=== PATIENT | male | born 1970 | race Caucasian/White ===

== ENCOUNTER 2020-04-19 09:39 | Emergency (ER) | payer MEDICAID ==
[~2020-04-19] VITALS: Ht 185.4 cm; Wt 102.0 kg
[2020-04-19] MEDS ORDERED: ondansetron 4mg rapidly disintigrating tab PO ONE (10:40)
[2020-04-19] MEDS ORDERED: HYDROcodone/acetaminophen 10/325mg tab PO ONE (10:40)
[2020-04-19] MEDS ORDERED: ONDA4TAB6 PO (11:40)
[2020-04-19] MEDS ORDERED: HYDR-4383 PO (11:40)
--- NOTE | 2020-04-19 12:14 | NUR ---
Pt is awaiting Track Walker to apply the back brace and the arm splint prior to discharge.
[2020-04-19 12:41] VITALS: BP 154/104
== END 2020-04-19 12:40 | disposition home or self-care (01) ==
LOC: ER 09:40
DX: S52.042A Displaced fracture of coronoid process of left ulna, initial encounter for closed fracture (principal); S52.612A Displaced fracture of left ulna styloid process, initial encounter for closed fracture; S52.692A Other fracture of lower end of left ulna, initial encounter for closed fracture; S22.088A Other fracture of T11-T12 vertebra, initial encounter for closed fracture; Z79.899 Other long term (current) drug therapy; W11.XXXA Fall on and from ladder, initial encounter; Y93.89 Activity, other specified; Y92.89 Other specified places as the place of occurrence of the external cause; Y99.8 Other external cause status
CPT/HCPCS: 29105; 72125; 72128; 73080; 73110; 73140; 99285

== ENCOUNTER 2021-10-17 18:05 | Emergency (ER) | payer MEDICAID ==
[~2021-10-17] VITALS: Ht 185.4 cm; Wt 104.5 kg
[~2021-10-17 18:05] MED LIST: HYDR-4383 PO; ONDA4TAB6 PO
[2021-10-17 20:27] LABS: CLARITY,URINE CLEAR (Clear); COLOR,URINE YELLOW (Yellow); GLUCOSE, URINE NEGATIVE (Neg); KETONES,URINE NEGATIVE (Neg); LEUKOCYTE ESTERASE ,URINE NEGATIVE (Neg); NITRITES, URINE NEGATIVE (Neg); OCCULT BLOOD,URINE NEGATIVE (Neg); PH,URINE 5.5 (4.8-8.0); PROTEIN,URINE NEGATIVE (Neg); UROBILINOGEN,URINE 0.2 E.U/dL (0.2-1.0)
[2021-10-17 20:33] LABS: UA COLLECTION TYPE CLN CATCH MIDSTREAM
[2021-10-17 20:34] LABS: BASOPHILS # (AUTO) 0.1 X10'3 (0-0.2); BASOPHILS % (AUTO) 0.4 % (0-1); EOSINOPHILS # (AUTO) 0.2 X10'3 (0-0.9); EOSINOPHILS % (AUTO) 1.4 % (0-6); HEMATOCRIT 48.6 % (42.0-52.0); HEMOGLOBIN 16.9 g/dl (14.0-17.9); LYMPHOCYTES # (AUTO) 2.5 X10'3 (1.1-4.8); LYMPHOCYTES % (AUTO) 18.8 % (21-51); MEAN CORPUSCULAR HEMOGLOBIN 32.7 PG (27.0-31.0); MEAN CORPUSCULAR HGB CONC 34.8 g/dL (33.0-36.5); MEAN CORPUSCULAR VOLUME 93.9 FL (78-98); MEAN PLATELET VOLUME 8.5 FL (7.4-10.4); MONOCYTES # (AUTO) 0.9 X10'3 (0-0.9); MONOCYTES % (AUTO) 6.5 % (2-12); NEUTROPHILS # (AUTO) 9.7 X10'3 (1.8-7.7); NEUTROPHILS % (AUTO) 72.9 % (42-75); PLATELET COUNT 220 X10'3 (140-440); RED BLOOD COUNT 5.18 X10'6 (4.70-6.10); RED CELL DISTRIBUTION WIDTH 14.2 % (11.5-14.5); WHITE BLOOD COUNT 13.3 X10'3 (4.5-11.0)
[2021-10-17 20:37] LABS: ALANINE AMINOTRANSFERASE 32 U/L (12-78); ALBUMIN 3.9 G/DL (3.4-5.0); ALBUMIN/GLOBULIN RATIO 1.3 (1.1-1.5); ALKALINE PHOSPHATASE 95 IU/L (46-116); ANION GAP 9 (8-16); ASPARTATE AMINO TRANSFERASE 24 U/L (10-37); BILIRUBIN,TOTAL 0.3 MG/DL (0.1-1.0); BLOOD UREA NITROGEN 18 MG/DL (7-18); BUN/CREATININE RATIO 16.8 (5.4-32.0); CHLORIDE 105 MMOL/L (99-107); CREATININE 1.07 MG/DL (0.60-1.10); GLUCOSE 114 MG/DL (70-104); LIPASE 115 U/L (73-393); SODIUM 140 MMOL/L (135-145); TOTAL CARBON DIOXIDE 26.3 MMOL/L (24-32); eGFR 73 ML/MIN
[2021-10-18] MEDS ORDERED: HYDR-3965 PO (02:44)
[2021-10-18 02:52] VITALS: BP 135/78
== END 2021-10-18 02:53 | disposition home or self-care (01) ==
LOC: ER 18:07
DX: S49.191A Other physeal fracture of lower end of humerus, right arm, initial encounter for closed fracture (principal); F41.0 Panic disorder [episodic paroxysmal anxiety]; Z79.899 Other long term (current) drug therapy; Z60.2 Problems related to living alone; X58.XXXA Exposure to other specified factors, initial encounter; Y93.89 Activity, other specified; Y92.89 Other specified places as the place of occurrence of the external cause; Y99.8 Other external cause status
CPT/HCPCS: 36415; 70450; 72125; 73030; 73080; 80053; 81003; 83690; 85025; 93005; 99285

== ENCOUNTER 2024-01-02 07:33 | Emergency (ER) | payer MEDICAID ==
[~2024-01-02] VITALS: Ht 185.4 cm; Wt 83.0 kg
[2024-01-02 07:44] VITALS: TEMP 98.6
[2024-01-02] MEDS ORDERED: ketorolac trometh inj. 60 MG/2 ML VIAL IM ONE (09:55)
[2024-01-02] MEDS ORDERED: HYDR-3973 PO (09:57)
[2024-01-02] MEDS: ketorolac tromethamine 15mg/ml inj. IM ONE (10:10)
[2024-01-02 10:18] VITALS: BP 125/72; PULSE 63; RESP 20; O2SAT 98
== END 2024-01-02 10:19 | disposition home or self-care (01) ==
LOC: ER 07:33
DX: S20.212A Contusion of left front wall of thorax, initial encounter (principal); Z79.899 Other long term (current) drug therapy; W01.0XXA Fall on same level from slipping, tripping and stumbling without subsequent striking against object, initial encounter; Y93.89 Activity, other specified; Y92.89 Other specified places as the place of occurrence of the external cause; Y99.8 Other external cause status
CPT/HCPCS: 71045; 96372; 99283; J1885

== ENCOUNTER 2024-01-05 05:56 | Emergency (ER) | payer MEDICAID ==
[~2024-01-05] VITALS: Ht 185.4 cm; Wt 104.5 kg
[~2024-01-05 05:56] MED LIST changes: +HYDR-3973 PO
[2024-01-05] MEDS: oxyCODONE IR 5mg (immed. release) tablet PO ONE (09:01)
[2024-01-05] MEDS: ketorolac trometh. 30mg/ml inj. IM ONE (09:06)
[2024-01-05] MEDS: BUPIVAcaine/PF 7.5 mg/ml (0.75%) 30ml vial IJ ONE (10:40)
[2024-01-05] MEDS: dexamethasone sod phosphate 10mg/ml inj IV ONE (10:40)
[2024-01-05] MEDS ORDERED: IBUP-1984 PO (11:03)
[2024-01-05] MEDS ORDERED: HYDR-3964 PO (11:03)
[2024-01-05] MEDS ORDERED: LIDO700A47 TOP (11:03)
[2024-01-05] MEDS ORDERED: POLY119P2 PO (11:05)
[2024-01-05] MEDS ORDERED: AMOX-117 PO (11:05)
[2024-01-05] MEDS ORDERED: DOCU-148 PO (11:05)
[2024-01-05] MEDS ORDERED: HYDR-3972 PO (11:05)
[2024-01-05] MEDS: LIDOcaine 5% patch TP ONE (12:07)
[2024-01-05 12:23] VITALS: BP 142/89; PULSE 61; RESP 18; O2SAT 97
[2024-01-06] MEDS ORDERED: HYDR-3965 PO (09:37)
== END 2024-01-05 12:15 | disposition home or self-care (01) ==
LOC: ER 05:57
DX: S22.42XA Multiple fractures of ribs, left side, initial encounter for closed fracture (principal); J98.11 Atelectasis; Z79.2 Long term (current) use of antibiotics; Z79.899 Other long term (current) drug therapy; W19.XXXA Unspecified fall, initial encounter; Y93.89 Activity, other specified; Y92.89 Other specified places as the place of occurrence of the external cause; Y99.8 Other external cause status
CPT/HCPCS: 64420; 71045; 71250; 96372; 99285; J1885

== ENCOUNTER 2024-01-14 08:10 | Emergency (ER) | payer MEDICAID ==
[~2024-01-14] VITALS: Ht 185.4 cm; Wt 104.5 kg
[~2024-01-14 08:10] MED LIST changes: +DOCU-148 PO; +HYDR-3965 PO; +IBUP-1984 PO; +LIDO700A47 TOP; +POLY119P2 PO
[2024-01-14 08:25] VITALS: BP 147/95; PULSE 91; O2SAT 98
[2024-01-14] MEDS ORDERED: HYDR-3965 PO (09:16)
[2024-01-14 09:39] VITALS: RESP 16
[2024-01-14] MEDS: ketorolac trometh. 30mg/ml inj. IM ONE (09:39)
[2024-01-14 10:01] VITALS: TEMP 97.4
== END 2024-01-14 10:02 | disposition home or self-care (01) ==
LOC: ER 08:11
DX: S22.32XA Fracture of one rib, left side, initial encounter for closed fracture (principal); R07.81 Pleurodynia; Z79.899 Other long term (current) drug therapy; W14.XXXA Fall from tree, initial encounter; Z91.81 History of falling; Y93.89 Activity, other specified; Y92.89 Other specified places as the place of occurrence of the external cause; Y99.8 Other external cause status
CPT/HCPCS: 71046; 96372; 99284; J1885

== ENCOUNTER → 2024-03-15 | Outpatient (CLI) | payer MEDICAID ==
[~2024-03-15] MED LIST changes: -HYDR-3973 PO; -IBUP-1984 PO
== END | disposition home or self-care (01) ==
LOC: RAD 16:33
PROVIDERS: ATTEND Family Medicine
DX: S22.42XD Multiple fractures of ribs, left side, subsequent encounter for fracture with routine healing (principal); I25.10 Atherosclerotic heart disease of native coronary artery without angina pectoris; R91.8 Other nonspecific abnormal finding of lung field; I35.8 Other nonrheumatic aortic valve disorders; J43.2 Centrilobular emphysema; X58.XXXD Exposure to other specified factors, subsequent encounter
CPT/HCPCS: 71250

== ENCOUNTER → 2024-04-26 | Outpatient (CLI) | payer MEDICAID | END | disposition home or self-care (01) | LOC: RAD 07:25 | PROVIDERS: ATTEND Physician Assistant | DX: S22.42XD Multiple fractures of ribs, left side, subsequent encounter for fracture with routine healing (principal); X58.XXXD Exposure to other specified factors, subsequent encounter | CPT/HCPCS: 71110 ==

== ENCOUNTER 2025-06-17 13:36 | Emergency (ER) | payer MEDICAID ==
[~2025-06-17] VITALS: Ht 185.4 cm; Wt 104.5 kg
[2025-06-17 13:40] VITALS: BP 149/77; PULSE 78; TEMP 98.2; O2SAT 99
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
[2025-06-17] MEDS ORDERED: MELO-102 PO (14:57)
[2025-06-17] MEDS ORDERED: LIDO700A47 TOP (14:57)
[2025-06-17] MEDS ORDERED: CYCL-1 PO (14:57)
[2025-06-17 15:14] VITALS: RESP 20
[2025-06-17] MEDS: ketorolac trometh 30MG/ML vial 30 MG/ML VIAL IM ONE (15:14)
== END 2025-06-17 15:24 | disposition home or self-care (01) ==
LOC: ER 13:36
DX: G89.29 Other chronic pain (principal); M54.9 Dorsalgia, unspecified; Z79.899 Other long term (current) drug therapy; Z60.2 Problems related to living alone; W13.2XXA Fall from, out of or through roof, initial encounter; Y93.89 Activity, other specified; Y92.89 Other specified places as the place of occurrence of the external cause; Y99.8 Other external cause status
CPT/HCPCS: 96372; 99283; J1885

== ENCOUNTER 2025-06-22 13:50 | Emergency (ER) | payer MEDICAID ==
[~2025-06-22] VITALS: Ht 185.4 cm; Wt 105.3 kg
[~2025-06-22 13:50] MED LIST changes: +CYCL-1 PO; +MELO-102 PO
[2025-06-22 13:58] VITALS: TEMP 98.3
[2025-06-22 15:30] LABS: CREATININE 0.99 MG/DL (0.60-1.10); TOTAL CARBON DIOXIDE 26.9 MMOL/L (24-32); eCRCL 98 ML/MIN; eGFR 79 ML/MIN
[2025-06-22 15:45] LABS: MEAN PLATELET VOLUME 8.7 FL (7.4-10.4); RED CELL DISTRIBUTION WIDTH 14.1 % (11.5-14.5)
[2025-06-22 17:18] LABS: LEUKOCYTE ESTERASE ,URINE NEGATIVE (Neg); NITRITES, URINE NEGATIVE (Neg); OCCULT BLOOD,URINE NEGATIVE (Neg)
[2025-06-22 17:22] LABS: UA COLLECTION TYPE URINAL
[2025-06-22] MEDS ORDERED: HYDR-3972 PO (17:53)
--- NOTE | 2025-06-22 17:54 | Physician Documentation ---
History of Present Illness ~ Chief Complaint: Back Pain Stated Complaint: BACK PAIN Time Seen by MD: 16:24 OK to notify your PCP?: Yes Primary Medical Doctor: [facility] Source: patient Mode of Arrival: POV, Ambulatory Exam Limitations: no limitations HPI 54 year old male with a her back pain which he states he has a very long history of but recently his back pain is increased. Pain is localized to his thoracic to lumbar spine. No radicular symptoms. He does have an ablation scheduled with Dr. Padilla and in the meantime is hoping get some pain medication. He states his primary care provider will not prescribe any opioids as he goes to [facility] and it is against their policy. He did get an injection of Toradol that he states was 300 mg at [facility] two days ago which did not provide him with any relief. No urinary retention, bowel or bladder incontinence, abdominal pain, nausea, vomiting. Medication Reconciliation Allergies: Coded Allergies: No Known Allergies (Unverified , 06/17/25) Scheduled Cyclobenzaprine* (Cyclobenzaprine*), 1 TAB PO HS Docusate Sodium (Colace), 1 CAP PO Q12H Hydrocodone/Acetaminophen ([place] 5-325 Tablet), 1 TAB PO TID PRN Lidocaine (Lidocaine), 1 PATCH TOP DAILY Lidocaine (Lidocaine), 1 PATCH TOP DAILY Meloxicam (Meloxicam), 1 TAB PO DAILY Ondansetron Hcl (Zofran), 1 TAB PO Q6H Polyethylene Glycol 3350 (Miralax), 17 GM PO DAILY Scheduled PRN Hydrocodone Bit/Acetaminophen 5/325 MG ([place] 5/325 MG), 1-2 TAB PO Q4-6 hours PRN for pain Hydrocodone Bit/Acetaminophen (Hydrocodon-Acetaminophn 10-325 tablet), 1 TAB PO TID PRN PRN for pain Past Medical History Past Medical History: No Pertinent History Past Surgical History: no surgical history Alcohol Use: None Drug Use: none Lives with: Alone Lives In: Home Occupation: employed Review of Systems All Other Systems at this time: Reviewed and Negative Physical Exam Physical Exam Vital Signs: Temperature: 98.3, Heart Rate: 91, Respiratory Rate: 16, BP: 154/85, Pulse Oximetry: 97, Weight: 105.300 Physical Exam GENERAL: Alert, no acute distress. HEENT: NCAT, EOMI, PERRL, normal oropharynx, moist oral mucosa. NECK: Supple, trachea midline. CARDIAC: Regular rate and rhythm, no murmurs, rubs, or gallops. Equal distal pulses. No lower extremity edema, cap refill less than 2 seconds. RESPIRATORY: Equal breath sounds, clear to auscultation bilaterally, no respiratory distress. GASTROINTESTINAL: Non distended, soft, nontender, No guarding or rebound. MUSCULOSKELETAL: TTP OVER PARASPINAL MUSCLES OF THORACIC TO LUMBAR SPINE, NO MIDLINE TTP. Normal range of motion, nontender, no swelling. Normal gait. NEUROLOGICAL: Awake, alert, and oriented x 3. SKIN: Warm/dry, no pallor, no rash. PSYCH: Alert and appropriate. Affect congruent with mood. Speech is clear. Good eye contact. Progress Results/Orders Results/Orders Orders - WILLIAM PAPPAS General Nursing Order (06/22/25 16:35) Vital Signs 06/22/25 06/22/25 06/22/25 13:58 16:32 18:03 Temp 98.3 Pulse 91 65 Resp 17 16 16 B/P (MAP) 154/85 147/81 Pulse Ox 97 95 Laboratory Tests Test 06/22/25 14:41 06/22/25 17:06 White Blood Count 13.8 H Red Blood Count 5.14 Hemoglobin 16.8 Hematocrit 48.7 Mean Corpuscular Volume 94.9 Mean Corpuscular Hemoglobin 32.8 H Mean Corpuscular Hemoglobin Concent 34.5 Red Cell Distribution Width 14.1 Platelet Count 227 Mean Platelet Volume 8.7 Neutrophils (%) (Auto) 77.5 H Lymphocytes (%) (Auto) 13.8 L Monocytes (%) (Auto) 6.9 Eosinophils (%) (Auto) 1.5 Basophils (%) (Auto) 0.3 Neutrophils # (Auto) 10.7 H Lymphocytes # (Auto) 1.9 Monocytes # (Auto) 0.9 Eosinophils # (Auto) 0.2 Basophils # (Auto) 0.0 CBC Comment Sodium Level 141 Potassium Level 4.1 Chloride Level 105 Carbon Dioxide Level 26.9 Anion Gap 9 Blood Urea Nitrogen 20 H Creatinine 0.99 Estimated GFR/1.73 m2 79 BUN/Creatinine Ratio 20.2 H Glucose Level 108 H Calcium Level 9.0 Total Bilirubin 0.3 Aspartate Amino Transf (AST/SGOT) 20 Alanine Aminotransferase (ALT/SGPT) 26 Alkaline Phosphatase 97 Total Protein 7.7 Albumin 3.7 Globulin 4.0 Albumin/Globulin Ratio 0.9 L Lipase 33 Chemistry Comments Urine Specimen Description Urinal Urine Color Yellow Urine Clarity Clear Urine pH 6.5 Urine Specific [place] 1.015 Urine Protein Negative Urine Glucose (UA) Negative Urine Ketones Negative Urine Occult Blood Negative Urine Nitrite Negative Urine Bilirubin Negative Urine Urobilinogen 0.2 Urine Leukocyte Esterase Negative Urine Culture Indicated Not ind Volume Urine Centrifuged 10 ml Urine Comment Medical Decision Making Differential Dx:Considerations: Include: AAA, Aortic dissection, Appendicitis, Bowel obstruction, Cholelithiasis, Cholangitis, DJD, Fracture, Hepatitis, HNP, Musculoskeletal pain, Pancreatitis, Pyelonephritis, Renal infarction, Strain, Urinary obstruction, Urolithiasis, Urinary tract infection Departure Time of Disposition: 17:54 Disposition: HOME / SELF CARE / HOMELESS Impression: Primary Impression: Low back pain Qualified Codes: M54.50 - Low back pain, unspecified Condition: Stable Discharge Instructions: Acute Back Pain, Adult Additional Instructions: F/U WITH [facility] FOR YOUR ABLATIONS WHICH ARE SCHEDULED IF ANY URINARY RETENTION, BOWEL OR BLADDER INCONTINENCE, UNCONTROLLED PAIN, NEUROLOGICAL PROBLEMS OF LEGS (COORDINATION PROBLEMS, ETC) RETURN TO ER IMMEDIATELY Referrals: NO PRIMARY CARE PROVIDER (PCP) Prescriptions Hydrocodone Bit/Acetaminophen (Hydrocodon-Acetaminophn 10-325 tablet) 10mg- 325mg Tablet 1 TAB PO TID PRN PRN for pain for 5 Days, #15 TAB DX: ACUTE BACK PAIN M54.9 Prov: WILLIAM PAPPAS 06/22/25 Education Educated: Patient Educated regarding: diagnosis, treatment, need for follow up Signature Scribe Signature: X Attestation: WILLIAM ELLSWORTH Jun 22, 2025 17:54
[2025-06-22 18:03] VITALS: BP 147/81; PULSE 65; RESP 16; O2SAT 95
== END 2025-06-22 18:05 | disposition home or self-care (01) ==
LOC: ER 13:50
DX: M54.50 Low back pain, unspecified (principal); Z79.899 Other long term (current) drug therapy; Z60.2 Problems related to living alone
CPT/HCPCS: 36415; 80053; 81003; 83690; 85025; 99283

== ENCOUNTER 2025-09-26 13:35 | Outpatient (CLI) | payer MEDICAID ==
[2025-09-26] MEDS ORDERED: iohexol 300mg/ml 100ml inj. ONE (14:23)
--- NOTE | 2025-09-26 15:11 | RADIOLOGY REPORT ---
CLINICAL HISTORY: RENAL CYST TECHNIQUE: CT of the abdomen and pelvis was performed with and without IV contrast. This exam was performed according to our departmental dose optimization program. Up-to-date CT equipment and radiation dose reduction techniques are utilized as appropriate. 95 mL Omnipaque 300 was administered intravenously. CTDI 33 DLP 3089 COMPARISON: None FINDINGS: Abdomen/Pelvis: The spleen, pancreas, adrenal glands, gallbladder, liver, and prostate gland are unremarkable. The bladder is not well distended and therefore not well evaluated. There are numerous bilateral renal cysts, measuring up to 7.2 cm on the right. There are no thick septations or mural nodularity. There is no concerning solid renal mass. The abdominal aorta is normal in course and caliber. There are minimal distal abdominal aortic atherosclerotic calcifications. There is no free intraperitoneal air or fluid. There is no enlarged abdominal or pelvic lymph node. There is no bowel wall thickening or dilatation. The appendix is normal. There is mild sigmoid colon diverticulosis. Other: The imaged lower thorax is unremarkable. No acute osseous abnormality is evident. IMPRESSION: Numerous bilateral renal cysts. No concerning renal mass. Mild sigmoid colon diverticulosis.
== END 2025-09-26 23:59 | disposition home or self-care (01) ==
LOC: RAD 13:35
DX: K57.30 Diverticulosis of large intestine without perforation or abscess without bleeding (principal); N28.1 Cyst of kidney, acquired
CPT/HCPCS: 74178; Q9967